=== PATIENT | male | born 1960 | race Caucasian/White ===

== ENCOUNTER → 2018-11-10 | Outpatient (CLI) | payer BC ==
[2018-11-10 11:37] LABS: Chol/HDL Ratio 3.04; LDL Cholesterol,Calculated 70.2 mg/dL (0.0-131.0); VLDL Calculation 23.8 mg/dL (5.00-40.00)
== END ==
LOC: LABWHC1 07:18
PROVIDERS: ATTEND Internal Medicine Interventional Cardiology
DX: E78.2 Mixed hyperlipidemia (principal)
CPT/HCPCS: 36415; 80061; 84450; 84460

== ENCOUNTER → 2020-10-01 | Outpatient (CLI) | payer BC ==
[2020-10-01 11:43] LABS: HGB 17.6 g/dL (13.0-17.0); MCH 31.8 pg (27.0-32.0); MCHC 33.2 g/dL (32.0-37.0); MCV 95.7 fL (80.0-97.0); Mean Platelet Volume 10.9 fL (9.5-12.2); Platelet Count 215 X 10*3/uL (140-440); RBC 5.54 X 10*6/uL (4.40-5.60); RDW 13.7 % (11.5-14.5); WBC 13.74 X 10*3/uL (4.50-10.00)
[2020-10-01 12:09] LABS: African American GFR (CKD) 94.4 (60.0-200.0); Albumin 4.5 g/dL (3.80-4.90); Albumin/Globulin Ratio 1.96 (1.60-3.17); Anion Gap 4.2 mmol/L (4.00-12.00); Calcium 9.5 mg/dL (8.7-10.3); Carbon Dioxide 29.8 mmol/L (21.6-31.8); Chol/HDL Ratio 3.07; Globulin 2.3 g/dL (1.6-3.3); LDL Cholesterol,Calculated 67.4 mg/dL (0.0-131.0); Non-African American GFR(CKD) 81.4 (60.0-200.0); Total Bilirubin 1.1 mg/dL (0.2-1.2); Total Protein 6.8 g/dL (6.2-8.2); VLDL Calculation 19.6 mg/dL (5.00-40.00)
== END | disposition home or self-care (01) ==
LOC: LABWHC1 08:31
PROVIDERS: ATTEND Nurse Practitioner Adult Health
DX: E78.5 Hyperlipidemia, unspecified (principal); I73.9 Peripheral vascular disease, unspecified; I10 Essential (primary) hypertension
CPT/HCPCS: 36415; 80053; 80061; 83735; 85027

== ENCOUNTER → 2021-02-02 | Outpatient (CLI) | payer BC ==
--- NOTE | 2021-02-06 08:09 | CTL ---
EXAMINATION TYPE: CT Low Dose Lung DATE OF EXAM ORDERED: 02/02/2021 HISTORY: Personal history of tobacco use. Lung cancer screening CT DLP: 142.[address] CTDI: 3.6 mGy Automated exposure control for dose reduction was used. SCREENING VISIT: Yes COMPARISON: None TECHNIQUE: Low dose computed tomography scan was performed through the chest at 1 mm thick sections a nd reconstructed images in multiple planes at 1 mm and [address] DIAGNOSTIC QUALITY: Satisfactory FINDINGS: LUNG NODULES: Present, detailed below: There is a 6 mm pulmonary nodule at the right upper lobe apex (4:48). LUNGS: COPD: Severity: Moderate. There is centrilobular and paraseptal emphysema, worse at the lung apices. There is a 7.2 cm paraseptal bulla at the left apex. Fibrosis: Severity: Mild Lymph nodes: No lymphadenopathy. Other findings: None RIGHT PLEURAL SPACE: Effusion: None Calcification: None Thickening: Moderate Pneumothorax: None LEFT PLEURAL SPACE: Effusion: None Calcification: Minimal calcification associated with the left apical pleural thickening. Thickening: Moderate Pneumothorax: None HEART: Heart Size: Normal Coronary calcification: Minimal Pericardial effusion: None OTHER FINDINGS: Upper abdomen: Normal adrenal glands. Bony thorax: No acute osseous abnormality. Supraclavicular region: Unremarkable. Other: None. IMPRESSION: 1. Emphysema with large left apical bulla. 2. Right upper lobe apical 6 mm solid pulmonary nodule. CT LUNG RAD AND CT CHEST RECOMMENDATION: Lung-Rad 3 Probably Benign: 6 month follow-up LDCT. S Modifier (other clinically significant findings): None
== END | disposition home or self-care (01) ==
LOC: RADCTMAIN 17:04
PROVIDERS: ATTEND Internal Medicine
DX: J43.9 Emphysema, unspecified (principal); R91.1 Solitary pulmonary nodule
CPT/HCPCS: 71271

== ENCOUNTER 2021-03-22 08:39 | Inpatient (IN) | payer BC ==
[2021-03-22] MEDS ORDERED: RX INFO: IV CONTRAST WAS GIVEN 1 EACH MISC MISCELLANE PRN (09:07)
[2021-03-22] MEDS ORDERED: SODIUM CHLORIDE 0.9% 500 ML 500 ML IV ONE (09:07)
[2021-03-22 09:30] LABS: Basophils # (A) 0.1 k/uL (0-0.2); Basophils % (A) 1 %; Eosinophils # (A) 0.3 k/uL (0-0.7); Eosinophils % (A) 2 %; HCT 52.5 % (39.0-53.0); HGB 17.7 gm/dL (13.0-17.5); Lymphocytes % (A) 23 %; MCH 33.2 pg (25.0-35.0); MCHC 33.8 g/dL (31.0-37.0); MCV 98.5 fL (80.0-100.0); Mean Platelet Volume 8.1; Monocytes # (A) 0.8 k/uL (0-1.0); Monocytes % (A) 6 %; Neutrophils # (A) 8.6 k/uL (1.3-7.7); Neutrophils % (A) 66 %; Platelet Count 212 k/uL (150-450); RBC 5.33 m/uL (4.30-5.90); RDW 13.3 % (11.5-15.5); WBC 12.9 k/uL (3.8-10.6)
[2021-03-22 09:39] LABS: Partial Thromboplastin Time 36.2 sec (22.0-30.0); Prothrombin Time 10.7 sec (9.0-12.0)
--- NOTE | 2021-03-22 09:48 | ED ---
Extremity Problem HPI - General Chief complaint: Extremity Problem,Nontraumatic Stated complaint: Leg Pain,Plavix Time Seen by Provider: 03/22/21 09:03 Source: patient, RN notes reviewed Mode of arrival: wheelchair Limitations: physical limitation - History of Present Illness Initial comments: 60-year-old male presents emergency Department with chief complaint of left calf pain. Patient is concerned as he is off Plavix for 9 days for colonoscopy. He has restart and his Plavix. Patient states he had a stent placed in his left leg by Dr. Lucas. Patient states that he is concerned that he might have a blood clot. Patient has no history of DVT . Patient is due for recheck of his stent. Patient has no chest pain or shortness breath. - Related Data Home Medications Medication Instructions Recorded Confirmed Aspirin EC [Ecotrin Low Dose] 81 mg PO HS 07/10/14 03/22/21 Atorvastatin [Lipitor] 80 mg PO HS 07/10/14 03/22/21 Clopidogrel [Plavix] 75 mg PO HS 02/20/17 03/22/21 Allergies Allergy/AdvReac Type Severity Reaction Status Date / Time No Known Allergies Allergy Verified 03/22/21 10:07 Review of Systems ROS Statement: Those systems with pertinent positive or pertinent negative responses have been documented in the HPI. ROS Other: All systems not noted in ROS Statement are negative. Past Medical History Past Medical History: CVA/TIA, Hyperlipidemia, Vascular Disorder Additional Past Medical History / Comment(s): Severe claudication L leg, CVA 2012, low back pain, MIGRAINE History of Any Multi-Drug Resistant Organisms: None Reported Past Surgical History: Back Surgery, Orthopedic Surgery Additional Past Surgical History / Comment(s): 10/06/15 L fem-pop atherectomy with PTBA and stent. Other surgical HX: LEFT thumb injury with tendon repair s, 09/30/15 peripheral angiogram, laminectomy lower back for ruptured disc, 07/2015 colonoscopy. Past Anesthesia/Blood Transfusion Reactions: No Reported Reaction Additional Past Anesthesia/Blood Transfusion Reaction / Comment(s): "HAD A SPINAL TEST-SEVERE VOMITING WITH NAUSEA AND VOMITING AND HEADACHE" Past Psychological History: No Psychological Hx Reported Past Alcohol Use History: Occasional Past Drug Use History: None Reported - Past Family History Mother Family Medical History: CVA/TIA Additional Family Medical History / Comment(s): Mother is 85 yrs old. Father Family Medical History: Coronary Artery Disease (CAD) Additional Family Medical History / Comment(s): Father has a cardiac stent. He is 89yrs old. General Exam Limitations: no limitations General appearance: alert, in no apparent distress Head exam: Present: atraumatic, normocephalic, normal inspection Eye exam: Present: normal appearance, PERRL, EOMI. Absent: scleral icterus, conjunctival injection, periorbital swelling Respiratory exam: Present: normal lung sounds bilaterally. Absent: respiratory distress, wheezes, rales, rhonchi, stridor Cardiovascular Exam: Present: regular rate, normal rhythm, normal heart sounds. Absent: systolic murmur, diastolic murmur, rubs, gallop, clicks Extremities exam: Present: other (Left calf tenderness, pain pulses palpable no discoloration or warmth) Course Vital Signs 03/22/21 03/22/21 08:51 11:22 Temperature 97.8 F Pulse Rate 77 69 Respiratory 16 16 Rate Blood Pressure 127/76 111/63 O2 Sat by Pulse 100 98 Oximetry Medical Decision Making - Medical Decision Making CT shows evidence of occluded stent in the left popliteal with reconstitution I did discuss the case with Dr. Lucas accepts admission once patient on heparin and will be admitted for further treatment - Lab Data Result diagrams: 03/22/21 09:16 03/22/21 09:16 Lab Results 03/22/21 03/22/21 03/22/21 Range/Units 09:16 09:16 09:16 WBC 12.9 H (3.8-10.6) k/uL RBC 5.33 (4.30-5.90) m/uL Hgb 17.7 H (13.0-17.5) gm/dL Hct 52.5 (39.0-53.0) % MCV 98.5 (80.0-100.0) fL MCH 33.2 (25.0-35.0) pg MCHC 33.8 (31.0-37.0) g/dL RDW 13.3 (11.5-15.5) % Plt Count 212 (150-450) k/uL MPV 8.1 Neutrophils % 66 % Lymphocytes % 23 % Monocytes % 6 % Eosinophils % 2 % Basophils % 1 % Neutrophils # 8.6 H (1.3-7.7) k/uL Lymphocytes # 3.0 (1.0-4.8) k/uL Monocytes # 0.8 (0-1.0) k/uL Eosinophils # 0.3 (0-0.7) k/uL Basophils # 0.1 (0-0.2) k/uL PT 10.7 (9.0-12.0) sec INR 1.0 (<1.2) APTT 36.2 H (22.0-30.0) sec Sodium 141 (137-145) mmol/L Potassium 4.6 (3.5-5.1) mmol/L Chloride 109 H (98-107) mmol/L Carbon Dioxide 25 (22-30) mmol/L Anion Gap 7 mmol/L BUN 22 H (9-20) mg/dL Creatinine 0.97 (0.66-1.25) mg/dL Est GFR (CKD-EPI)AfAm >90 (>60 ml/min/1.73 sqM) Est GFR (CKD-EPI)NonAf 85 (>60 ml/min/1.73 sqM) Glucose 97 (74-99) mg/dL Calcium 10.0 (8.4-10.2) mg/dL Total Bilirubin 1.4 H (0.2-1.3) mg/dL AST 37 (17-59) U/L ALT 55 H (4-49) U/L Alkaline Phosphatase 131 H (38-126) U/L Total Protein 7.3 (6.3-8.2) g/dL Albumin 4.4 (3.5-5.0) g/dL Disposition Clinical Impression: Left popliteal artery occlusion Disposition: ADMITTED IP TO THIS [facility] Condition: Fair Referrals: Neville Lucas MD [Primary Care Provider] - 1-2 days
[2021-03-22 09:53] LABS: ALT 55 U/L (4-49); AST 37 U/L (17-59); African American GFR (CKD) >90 (>60 ml/min/1.73 sqM); Albumin 4.4 g/dL (3.5-5.0); Alkaline Phosphatase 131 U/L (38-126); Anion Gap 7 mmol/L; Blood Urea Nitrogen 22 mg/dL (9-20); Carbon Dioxide 25 mmol/L (22-30); Chloride 109 mmol/L (98-107); Glucose 97 mg/dL (74-99); Non-African American GFR(CKD) 85 (>60 ml/min/1.73 sqM); Potassium 4.6 mmol/L (3.5-5.1); Sodium 141 mmol/L (137-145); Total Bilirubin 1.4 mg/dL (0.2-1.3); Total Protein 7.3 g/dL (6.3-8.2)
--- NOTE | 2021-03-22 10:10 | US ---
EXAMINATION TYPE: US venous doppler duplex LE LT DATE OF EXAM: 03/22/2021 9:50 AM COMPARISON: NONE CLINICAL HISTORY: pain. SIDE PERFORMED: Left TECHNIQUE: The lower extremity deep venous system is examined utilizing real time linear array sonog juan with graded compression, doppler sonography and color-flow sonography. VESSELS IMAGED: Common Femoral Vein Deep Femoral Vein Greater Saphenous Vein * Femoral Vein Popliteal Vein Small Saphenous Vein * Proximal Calf Veins (* superficial vessels) Left Leg: Negative for DVT IMPRESSION: 1. Left lower extremity ultrasound negative for deep venous thrombosis.
--- NOTE | 2021-03-22 11:30 | CT ---
CT angiogram of the left lower extremity HISTORY: Peripheral vascular occlusive disease, prior stent placement, left leg pain Helical acquisition obtained pre- and postadministration of 125 cc Isovue-370 IV through the pelvis a nd lower extremities. Automated exposure control for dose reduction, DLP 1849.4 mGycentimeters. 3-dim ensional reconstructions performed on an alternate workstation and reviewed. Correlation to prior angiogram 10/06/2015 The distal abdominal aorta, common iliac, internal and external iliac, common femoral, deep and super ficial femoral arteries are patent. Popliteal artery stent is in place, popliteal artery proximal to the stent is enhancing, at the level of the stent there is no enhancement identified. Distal to the s tent in the left popliteal artery there is enhancement of the anterior tibial artery, reconstitution of the distal aspect of the tibioperoneal trunk, posterior tibial artery and peroneal artery, peronea l artery is seen to the level of the mid left leg, anterior tibial artery and posterior tibial artery enhances and are patent into the foot. Outflow in the right lower extremity is patent to the poplite al artery, proximal trifurcation vasculature, at the level of the mid right leg. Peroneal artery does not enhance, the anterior tibial artery enhances to approximately the level of the mid leg, posterio r tibial artery enhances is patent into the foot. Mild atheromatous changes are present within the di stal abdominal aorta, iliac vasculature without significant stenosis. The inferior mesenteric artery is patent. Prostate is enlarged. Degenerative disc changes are present visualized lower lumbar spine. IMPRESSION: Peripheral vascular occlusive disease, there is occlusion of the left popliteal artery at the level of the stent with reconstitution, peripheral flow is described.
[2021-03-22] MEDS ORDERED: HEPARIN SODIUM 1,000 UN/ML (10ML VL) IV PRN (12:30)
[2021-03-22] MEDS ORDERED: HEPARIN SODIUM 1,000 UN/ML (10ML VL) IV ONE (12:30)
[2021-03-22] MEDS ORDERED: ACETAMINOPHEN TAB 325 MG TAB PO PRN (12:32)
[2021-03-22] MEDS ORDERED: NALOXONE 0.4 MG/ML 1 ML VIAL IV PRN (12:32)
[2021-03-22] MEDS: HEPARIN SOD,PORK IN 0.45% NACL 25,000 UNIT in 0.45% NACL 1 250ML.BAG IV SCH (13:18)
--- NOTE | 2021-03-22 13:53 | P.HPCAR ---
History of Present Illness H&P Date: 03/22/21 HISTORY OF PRESENT ILLNESS: This is a 60-year-old male with a past medical history significant for nicotine dependence and peripheral arterial disease with previous stenting of the left popliteal artery in 2016. Patient follows in the office with Dr. Lucas. Patient presented to the hospital with a chief complaint of left calf and foot pain. Patient states he underwent a colonoscopy last . He reports he was off his Plavix for 7 days. His is at the bedside and states the patient did not take his plavix for 9 days. He states he resumed his plavix on Saturday. He began having left calf pain a couple days ago and then the pain progressed into his foot. The patient denies any shortness of breath. He denies any chest pain or pressure. He was found to have left popliteal artery occlusion and was started on IV heparin in the emergency room. The patient states he is a current cigarette smoker and smokes approximately one pack per day. Patient underwent CT angiogram of the left lower extremity revealing peripheral vascular occlusive disease. There is occlusion of the left popliteal artery at the level of the stent with reconstitution. Doppler performed of left lower extremity which was negative for DVT Laboratory data: WBC 12.9. Hemoglobin 17.7. Platelet count 212. Sodium 141. Potassium 4.6. BUN 22. Creatinine 0.97. Current home cardiac medications include Plavix 75 mg, Lipitor 80 mg, and aspirin 81 mg Most recent echocardiogram obtained in 2019 revealed ejection fraction 55% and mild mitral regurgitation Patient underwent Serena scan stress test in 2016 which was negative for ischemia REVIEW OF SYSTEMS: At the time of my exam: CONSTITUTIONAL: Denies fever or chills. HEENT: Denies blurred vision, vision changes, or eye pain. Denies hemoptysis CARDIOVASCULAR: Denies chest pain. Denies orthopnea. Denies PND. Denies palpitations RESPIRATORY: Denies shortness of breath. GASTROINTESTINAL: Denies abdominal pain. Denies nausea or vomiting. HEMATOLOGIC: Denies bleeding disorders. GENITOURINARY: Denies any blood in urine. SKIN: Denies pruitis. Denies rash. PHYSICAL EXAM: VITAL SIGNS: Reviewed. GENERAL: Well-developed in no acute distress. HEENT: Head is normocephalic. Pupils are equal, round. Sclerae anicteric. Mucous membranes of the mouth are moist. Neck supple. No JVD or thyromegaly LUNGS: Respirations even and unlabored. Lungs essentially clear to auscultation bilaterally. HEART: Regular rate and rhythm. S1 and S2 heard. ABDOMEN: Soft. Nondistended. Nontender. EXTREMITIES: Normal range of motion. No clubbing or cyanosis. Patients left leg warm to touch. Doppler pulse present. NEUROLOGIC: Awake and alert. Oriented x 3. ASSESSMENT: Left leg pain Occlusion of the left popliteal artery Peripheral artery disease with stenting of left popliteal artery, 2015 Nicotine dependence PLAN: Smoking cessation encouraged Resume home medications including aspirin, plavix, and lipitor Continue IV heparin NPO at midnight Possible peripheral intervention to be performed tomorrow by Dr. Lucas Further recommendations pending patient course Nurse practitioner note has been reviewed by physician. Signing provider agrees with the documented findings, assessment, and plan of care. Physical Exam Vitals: Vital Signs Temp Pulse Resp BP Pulse Ox 03/22/21 11:22 69 16 111/63 98 03/22/21 08:51 97.8 F 77 16 127/76 100 Intake and Output 03/21/21 03/22/21 03/22/21 22:59 06:59 14:59 Other: Weight 97.522 kg Past Medical History Past Medical History: CVA/TIA, Hyperlipidemia, Vascular Disorder Additional Past Medical History / Comment(s): Severe claudication L leg, CVA 2012, low back pain, MIGRAINE History of Any Multi-Drug Resistant Organisms: None Reported Past Surgical History: Back Surgery, Orthopedic Surgery Additional Past Surgical History / Comment(s): 10/06/15 L fem-pop atherectomy with PTBA and stent. Other surgical HX: LEFT thumb injury with tendon repairs, 09/30/15 peripheral angiogram, laminectomy lower back for ruptured disc, 07/2015 colonoscopy. Past Anesthesia/Blood Transfusion Reactions: No Reported Reaction Additional Past Anesthesia/Blood Transfusion Reaction / Comment(s): "HAD A SPINAL TEST-SEVERE VOMITING WITH NAUSEA AND VOMITING AND HEADACHE" Past Psychological History: No Psychological Hx Reported Past Alcohol Use History: Occasional Past Drug Use History: None Reported - Past Family History Mother Family Medical History: CVA/TIA Additional Family Medical History / Comment(s): Mother is 85 yrs old. Father Family Medical History: Coronary Artery Disease (CAD) Additional Family Medical History / Comment(s): Father has a cardiac stent. He is 89yrs old. Physical Examination Vital Signs Temp Pulse Resp BP Pulse Ox 03/22/21 11:22 69 16 111/63 98 03/22/21 08:51 97.8 F 77 16 127/76 100 Intake and Output 03/21/21 03/22/21 03/22/21 22:59 06:59 14:59 Other: Weight 97.522 kg Results 03/22/21 09:16 03/22/21 09:16 Cardiac Enzymes 03/22/21 Range/Units 09:16 AST 37 (17-59) U/L Coagulation 03/22/21 Range/Units 09:16 PT 10.7 (9.0-12.0) sec APTT 36.2 H (22.0-30.0) sec CBC 03/22/21 Range/Units 09:16 WBC 12.9 H (3.8-10.6) k/uL RBC 5.33 (4.30-5.90) m/uL Hgb 17.7 H (13.0-17.5) gm/dL Hct 52.5 (39.0-53.0) % Plt Count 212 (150-450) k/uL Comprehensive Metabolic Panel 03/22/21 Range/Units 09:16 Sodium 141 (137-145) mmol/L Potassium 4.6 (3.5-5.1) mmol/L Chloride 109 H (98-107) mmol/L Carbon Dioxide 25 (22-30) mmol/L BUN 22 H (9-20) mg/dL Creatinine 0.97 (0.66-1.25) mg/dL Glucose 97 (74-99) mg/dL Calcium 10.0 (8.4-10.2) mg/dL AST 37 (17-59) U/L ALT 55 H (4-49) U/L Alkaline Phosphatase 131 H (38-126) U/L Total Protein 7.3 (6.3-8.2) g/dL Albumin 4.4 (3.5-5.0) g/dL Current Medications Generic Name Dose Route Start Last Admin Trade Name Freq PRN Reason Stop Dose Admin Acetaminophen 650 mg 03/22/21 12:32 Acetaminophen Tab 325 Mg Tab PO Q6HR PRN Mild Pain or Fever > 100.5 Hydrocodone Bitart/Acetaminophen 1 each 03/22/21 12:32 Hydrocodone/Apap 5-325mg 1 Each Tab PO Q4HR PRN Moderate Pain Aspirin 81 mg 03/22/21 21:00 Aspirin 81 Mg PO HS JJ Atorvastatin Calcium 80 mg 03/22/21 21:00 Atorvastatin 80 Mg Tab PO HS JJ Clopidogrel Bisulfate 75 mg 03/22/21 21:00 Clopidogrel 75 Mg Tab PO HS JJ Heparin Sodium (Porcine) 0 unit 03/22/21 12:30 Heparin Sodium 1,000 Un/Ml (10ml Vl) IV PER PROTOCOL PRN Low PTT Protocol Heparin Sodium/Sodium Chloride 250 mls @ 17.554 mls/hr 03/22/21 12:30 03/22/21 13:18 25,000 unit/ Sodium Chloride IV 18 units/kg/hr .[id number] JJ 17.554 mls/hr Administration Protocol 18 UNITS/KG/HR Sodium Chloride 1,000 mls @ 75 mls/hr 03/22/21 12:45 Saline 0.9% IV .[id number] [facility] Miscellaneous Information 1 each 03/22/21 09:07 Rx Info: Iv Contrast Was Given 1 Each Misc MISCELLANE 03/24/21 09:07 DAILY PRN Per Protocol Naloxone HCl 0.2 mg 03/22/21 12:32 Naloxone 0.4 Mg/Ml 1 Ml Vial IV Q2M PRN Opioid Reversal Intake and Output 03/21/21 03/22/21 03/22/21 22:59 06:59 14:59 Other: Weight 97.522 kg Patient Weight 03/23/21 06:59 Weight 97.522 kg 03/22/21 09:16 03/22/21 09:16
[2021-03-22] MEDS: SODIUM CHLORIDE 0.9% 1,000 ML IV SCH (17:57)
[2021-03-22 18:17] LABS: Prothrombin Time 11.1 sec (9.0-12.0)
[2021-03-22] MEDS: CLOPIDOGREL 75 MG TAB PO SCH (20:19)
[2021-03-22] MEDS: ASPIRIN 81 MG PO SCH (20:19)
[2021-03-22] MEDS: ATORVASTATIN 80 MG TAB PO SCH (20:19)
[2021-03-23 02:46] LABS: Basophils # (A) 0.1 k/uL (0-0.2); Basophils % (A) 1 %; Eosinophils # (A) 0.3 k/uL (0-0.7); Eosinophils % (A) 3 %; HCT 50.7 % (39.0-53.0); HGB 16.7 gm/dL (13.0-17.5); Lymphocytes # (A) 4.1 k/uL (1.0-4.8); Lymphocytes % (A) 37 %; MCH 32.8 pg (25.0-35.0); MCHC 32.9 g/dL (31.0-37.0); MCV 99.7 fL (80.0-100.0); Mean Platelet Volume 8.4; Monocytes # (A) 0.6 k/uL (0-1.0); Monocytes % (A) 6 %; Neutrophils # (A) 5.8 k/uL (1.3-7.7); Neutrophils % (A) 52 %; Platelet Count 166 k/uL (150-450); RBC 5.08 m/uL (4.30-5.90); RDW 13.2 % (11.5-15.5); WBC 11.2 k/uL (3.8-10.6)
[2021-03-23] MEDS: HEPARIN SOD,PORK IN 0.45% NACL 25,000 UNIT in 0.45% NACL 1 250ML.BAG IV SCH ×2 (05:45→19:45)
[2021-03-23] MEDS: SODIUM CHLORIDE 0.9% 1,000 ML IV SCH ×2 (05:47→16:13)
[2021-03-23] MEDS ORDERED: niCARdipine 25 MG/10 ML VIAL ONE (12:09)
[2021-03-23] MEDS ORDERED: LIDOCAINE 1% INJ 10MG/ML (20 ML MDV) ONE (12:09)
[2021-03-23] MEDS ORDERED: SODIUM CHLORIDE 0.9% 500 ML 500 ML with niCARdipine 6.25 MG, NITROGLYCERIN-D5W PMX 0.05... IV ONE ×4 (12:20)
[2021-03-23] MEDS ORDERED: HEPARIN SODIUM 1,000 UN/ML (10ML VL) ONE (12:26)
[2021-03-23] MEDS ORDERED: IV FLUID CONTINUATION 1,000 ML IV ONE (12:34)
[2021-03-23] MEDS ORDERED: MIDAZOLAM 2 MG/2 ML VIAL IVP ONE (12:34)
[2021-03-23] MEDS ORDERED: LIDOCAINE 1% INJ 10MG/ML (20 ML MDV) SQ ONE ×2 (12:34→12:35)
[2021-03-23] MEDS ORDERED: HEPARIN SODIUM 1,000 UN/ML (10ML VL) IV ONE (12:46)
[2021-03-23] MEDS ORDERED: ALTEPLASE 10 MG in SODIUM CHLORIDE 0.9% 100 ML IA STA (12:52)
[2021-03-23] MEDS ORDERED: HYDROmorphone 1 MG/ML 1 ML SYRINGE IVP ONE (12:56)
--- NOTE | 2021-03-23 13:04 | P.PN ---
Subjective Progress Note Date: 03/23/21 HISTORY OF PRESENT ILLNESS: This is a 60-year-old male with a past medical history significant for nicotine dependence and peripheral arterial disease with previous stenting of the left popliteal artery in 2016. Patient follows in the office with Dr. Lucas. Patient presented to the hospital with a chief complaint of left calf and foot pain. Patient states he underwent a colonoscopy last . He reports he was off his Plavix for 7 days. His is at the bedside and states the patient did not take his plavix for 9 days. He states he resumed his plavix on Saturday. He began having left calf pain a couple days ago and then the pain progressed into his foot. The patient denies any shortness of breath. He denies any chest pain or pressure. He was found to have left popliteal artery occlusion and was started on IV heparin in the emergency room. The patient states he is a current cigarette smoker and smokes approximately one pack per day. Patient underwent CT angiogram of the left lower extremity revealing peripheral vascular occlusive disease. There is occlusion of the left popliteal artery at the level of the stent with reconstitution. Doppler performed of left lower extremity which was negative for DVT Laboratory data: WBC 12.9. Hemoglobin 17.7. Platelet count 212. Sodium 141. Potassium 4.6. BUN 22. Creatinine 0.97. Current home cardiac medications include Plavix 75 mg, Lipitor 80 mg, and aspirin 81 mg Most recent echocardiogram obtained in 2018 revealed ejection fraction 55% and mild mitral regurgitation Patient underwent Serena scan stress test in 2016 which was negative for ischemia 03/23/2021 Patient examined this morning at the bedside. Patient denies chest pain or pressure. He denies shortness of breath. He reports minimal discomfort to his left foot. He remains on IV heparin. He is scheduled to undergo peripheral intervention today with Dr. Lucas. PHYSICAL EXAM: VITAL SIGNS: Reviewed. GENERAL: Well-developed in no acute distress. HEENT: Head is normocephalic. Pupils are equal, round. Sclerae anicteric. Mucous membranes of the mouth are moist. Neck supple. No JVD or thyromegaly LUNGS: Respirations even and unlabored. Lungs essentially clear to auscultation bilaterally. HEART: Regular rate and rhythm. S1 and S2 heard. ABDOMEN: Soft. Nondistended. Nontender. EXTREMITIES: Normal range of motion. No clubbing or cyanosis. Patients left leg warm to touch. Doppler pulse present. NEUROLOGIC: Awake and alert. Oriented x 3. ASSESSMENT: Left leg pain Occlusion of the left popliteal artery Peripheral artery disease with stenting of left popliteal artery, 2015 Nicotine dependence PLAN: Continue current cardiac medications Continue IV heparin Patient to undergo peripheral intervention today with Dr. Lucas Further recommendations pending patient course Nurse practitioner note has been reviewed by physician. Signing provider agrees with the documented findings, assessment, and plan of care. Objective - Vital Signs Vital signs: Vital Signs Temp 98.1 F 03/23/21 03:13 Pulse 51 L 03/23/21 03:13 Resp 18 03/23/21 03:13 BP 118/70 03/23/21 03:13 Pulse Ox 99 03/23/21 03:13 Intake & Output 03/22/21 03/23/21 03/23/21 18:59 06:59 18:59 Intake Total 442.814 46.422 Balance 442.814 46.422 Weight 97.522 kg Intake: Intake, IV Titration 442.814 46.422 Amount Heparin Sod,Pork in 0.45% 217.814 46.422 NaCl 25,000 unit In 0.45 % NaCl 1 250ml.bag @ 18 UNITS/KG/HR 17.554 mls/hr IV .[id number] JJ Rx#: [id number] Sodium Chloride 0.9% 1, 225 000 ml @ 75 mls/hr IV . [id number] JJ Rx#:[id number] Other: Voiding Method Toilet Urinal # Voids 1 - Labs CBC & Chem 7: 03/23/21 01:55 03/22/21 09:16 Labs: Abnormal Lab Results - Last 24 Hours (Table) 03/22/21 03/23/21 03/23/21 Range/Units 17:45 01:47 01:55 WBC 11.2 H (3.8-10.6) k/uL APTT >200.0 H* >200.0 H* (22.0-30.0) sec 03/23/21 Range/Units 07:54 WBC (3.8-10.6) k/uL APTT 101.2 H* (22.0-30.0) sec
[2021-03-23] MEDS ORDERED: RX INFO: IV CONTRAST WAS GIVEN 1 EACH MISC MISCELLANE PRN (13:10)
[2021-03-23] MEDS ORDERED: SODIUM CHLORIDE 0.9% 1,000 ML IV SCH (13:15)
[2021-03-23] MEDS ORDERED: IOPAMIDOL-250 100ML BTL INTRAARTER ONE (13:23)
[2021-03-23 13:59] LABS: Glucose,Whole Blood 79 mg/dL (75-99)
[2021-03-23 15:17] LABS: Prothrombin Time 10.9 sec (9.0-12.0)
[2021-03-23 15:30] LABS: Partial Thromboplastin Time >200.0 sec (22.0-30.0)
--- NOTE | 2021-03-23 15:33 | AN ---
ANGIOGRAPHY REPORT DATE OF SERVICE: March 23, 2021. PERFORMING PHYSICIAN: Neville Lucas MD. PROCEDURE PERFORMED: 1. Successful placement of infusion catheter for tPA in the left popliteal and left tibioperoneal trunk as well as left posterior tibial artery. 2. Left lower extremity angiogram. 3. Ultrasound-guided access of the right common femoral artery. INDICATION: This is a 60-year-old gentleman with history of lower extremities peripheral arterial disease who underwent stenting of the left popliteal in 2016, underwent recently a colonoscopy. He for some reason stopped the Plavix for 9 days. He presented to the hospital with pain in the left leg which was resting and mainly below the knee as well as in the foot. He underwent a CTA which showed occluded left popliteal. In view of the resting pain and the finding on the CT scan, we decided to pursue with an angiogram with possible placement of infusion catheter. APPROACH: Right common femoral artery. COMPLICATIONS: None. LEVEL OF SEDATION: Moderate, with sedation length of 31 minutes. PROCEDURE DESCRIPTION: After obtaining an informed consent, the patient was brought to the cardiac laborer. The right common femoral artery was cannulated using micropuncture technique under ultrasound guidance, the micropuncture wire passed easily. Then I placed a 6-[place] sheath, a 70 cm sheath at the right common femoral artery. I did select the left SFA using 0.035 stiff Glidewire with the backup support of 5- [place] RIM catheter. After that, I did advance the sheath over the catheter and the wire to the proximal left SFA. Anticoagulation was initiated using heparin and the patient was given 6000 of heparin IV. I did left lower extremity angiogram which revealed 1 vessel runoff below the knee with posterior tibial artery and occluded left tibioperoneal trunk as well as left popliteal, which seems to be in-stent occlusion. I did cross the acute total occlusion using 018 coleman tip Glidewire with the backup support of 035 catheter. After that I did advance the catheter over the wire to the left popliteal where I did left popliteal angiogram to prove that I was in the true lumen. After that I did advance the infusion catheter with a 20 cm infusion catheter over 018 wire to the left popliteal and then left TPT and then left posterior tibial artery. After that, I did secure the catheter and I connected the catheter to start infusion. The patient is going to be brought tomorrow for a second look to see if there is any residual thrombus. POSTPROCEDURE MANAGEMENT: 1. Continue TPA overnight. 2. Bring the patient for second look tomorrow morning. 3. Continue monitor the PT and PTT. 4. Continue to monitor the hemoglobin. 5. Standard groin care. 6. Follow up with the patient. SHARITA / PATO: [id number] /
[2021-03-23] MEDS: CLOPIDOGREL 75 MG TAB PO SCH (20:40)
[2021-03-23] MEDS: ASPIRIN 81 MG PO SCH (20:41)
[2021-03-23] MEDS: HYDROcodone/APAP 5-325MG 1 EACH TAB PO PRN (20:41)
[2021-03-23] MEDS: ATORVASTATIN 80 MG TAB PO SCH (20:42)
[2021-03-23 20:47] LABS: Basophils # (A) 0.1 k/uL (0-0.2); Basophils % (A) 1 %; Eosinophils # (A) 0.4 k/uL (0-0.7); Eosinophils % (A) 3 %; HCT 49.6 % (39.0-53.0); HGB 15.9 gm/dL (13.0-17.5); Lymphocytes # (A) 3.1 k/uL (1.0-4.8); Lymphocytes % (A) 27 %; MCH 31.6 pg (25.0-35.0); MCV 98.7 fL (80.0-100.0); Mean Platelet Volume 8.3; Monocytes # (A) 0.7 k/uL (0-1.0); Monocytes % (A) 6 %; Neutrophils % (A) 62 %; Platelet Count 177 k/uL (150-450); RBC 5.02 m/uL (4.30-5.90); RDW 12.6 % (11.5-15.5); WBC 11.3 k/uL (3.8-10.6)
[2021-03-23 20:57] LABS: African American GFR (CKD) >90 (>60 ml/min/1.73 sqM); Blood Urea Nitrogen 20 mg/dL (9-20); Non-African American GFR(CKD) 79 (>60 ml/min/1.73 sqM)
[2021-03-23] MEDS: ALTEPLASE 10 MG in SODIUM CHLORIDE 0.9% 100 ML IA SCH (21:00)
[2021-03-23 21:02] LABS: Partial Thromboplastin Time 35.3 sec (22.0-30.0); Prothrombin Time 11.1 sec (9.0-12.0)
[2021-03-24] MEDS: HYDROcodone/APAP 5-325MG 1 EACH TAB PO PRN ×3 (00:43→09:09)
[2021-03-24 05:27] LABS: Basophils # (A) 0.1 k/uL (0-0.2); Basophils % (A) 0 %; Eosinophils # (A) 0.3 k/uL (0-0.7); Eosinophils % (A) 3 %; HCT 51.3 % (39.0-53.0); HGB 16.3 gm/dL (13.0-17.5); Lymphocytes # (A) 2.6 k/uL (1.0-4.8); Lymphocytes % (A) 23 %; MCH 31.7 pg (25.0-35.0); MCHC 31.9 g/dL (31.0-37.0); MCV 99.7 fL (80.0-100.0); Mean Platelet Volume 8.6; Monocytes # (A) 0.8 k/uL (0-1.0); Monocytes % (A) 7 %; Neutrophils # (A) 7.6 k/uL (1.3-7.7); Neutrophils % (A) 67 %; Platelet Count 170 k/uL (150-450); RBC 5.15 m/uL (4.30-5.90); RDW 12.7 % (11.5-15.5); WBC 11.5 k/uL (3.8-10.6)
[2021-03-24 05:38] LABS: Partial Thromboplastin Time 36.7 sec (22.0-30.0); Prothrombin Time 11.1 sec (9.0-12.0)
[2021-03-24 05:50] LABS: African American GFR (CKD) >90 (>60 ml/min/1.73 sqM); Blood Urea Nitrogen 18 mg/dL (9-20); Non-African American GFR(CKD) >90 (>60 ml/min/1.73 sqM)
[2021-03-24] MEDS: ALTEPLASE 10 MG in SODIUM CHLORIDE 0.9% 100 ML IA SCH (06:16)
[2021-03-24] MEDS: SODIUM CHLORIDE 0.9% 1,000 ML IV SCH ×2 (06:33→18:23)
[2021-03-24] MEDS: HEPARIN SOD,PORK IN 0.45% NACL 25,000 UNIT in 0.45% NACL 1 250ML.BAG IV SCH (06:54)
[2021-03-24] MEDS ORDERED: HYDROmorphone 1 MG/ML 1 ML SYRINGE IVP ONE (13:02)
[2021-03-24] MEDS ORDERED: IV FLUID CONTINUATION 700 ML IV ONE (13:02)
[2021-03-24] MEDS ORDERED: MIDAZOLAM 2 MG/2 ML VIAL IV ONE (13:02)
[2021-03-24] MEDS ORDERED: NALOXONE 0.4 MG/ML 1 ML VIAL IVP PRN (13:07)
[2021-03-24] MEDS ORDERED: IOPAMIDOL-250 100ML BTL INTRAARTER ONE (13:07)
[2021-03-24] MEDS ORDERED: SODIUM CHLORIDE 0.9% 1,000 ML in EMPTY BAG 1 BAG IV SCH (13:15)
--- NOTE | 2021-03-24 13:43 | AN ---
ANGIOGRAPHY REPORT DATE OF SERVICE: PERFORMING PHYSICIAN: Neville Lucas M.D. PROCEDURES PERFORMED: 1. Left lower extremity angiogram. 2. Recheck after tPA infusion. 3. Right common femoral artery angiogram. INDICATION: This is a pleasant 60-year-old gentleman who was admitted to the hospital with right lower extremity discomfort and he was diagnosed with acute limb ischemia. He underwent an angiogram which revealed occluded right popliteal. Yesterday we did place an infusion catheter in the right popliteal and he was infused with tPA overnight and he was brought today for a second look. APPROACH: Right common femoral artery. COMPLICATIONS: None. LEVEL OF SEDATION: Moderate, with sedation length of 7 minutes. PROCEDURE DESCRIPTION: After obtaining informed consent, the patient was brought to the cardiac bobcat driver/labor. I did place an 0.035 stiff Glidewire in the infusion catheter and the infusion catheter was pulled out. Left lower extremity angiogram was performed and revealed 3-vessel runoff below the knee along with mild residual thrombus in the left popliteal and open left SFA. The patient did have palpable pulse about 2+ in the posterior tibial and anterior tibial arteries. At that point, I decided to stop. I did exchange my long 70 cm sheath for a short 11 cm sheath over 0.035 wire. Subsequently I closed the groin using Perclose. The procedure was completed without any complication. POST-PROCEDURE MANAGEMENT: 1. Consider triple therapy, including aspirin and Plavix and Xarelto at low doses. 2. The patient can be discharged in the next 24 hours. MMODL / IJN: [id number] /
--- NOTE | 2021-03-24 14:09 | P.PN ---
Subjective Progress Note Date: 03/24/21 HISTORY OF PRESENT ILLNESS: This is a 60-year-old male with a past medical history significant for nicotine dependence and peripheral arterial disease with previous stenting of the left popliteal artery in 2016. Patient follows in the office with Dr. Lucas. Patient presented to the hospital with a chief complaint of left calf and foot pain. Patient states he underwent a colonoscopy last . He reports he was off his Plavix for 7 days. His is at the bedside and states the patient did not take his plavix for 9 days. He states he resumed his plavix on Saturday. He began having left calf pain a couple days ago and then the pain progressed into his foot. The patient denies any shortness of breath. He denies any chest pain or pressure. He was found to have left popliteal artery occlusion and was started on IV heparin in the emergency room. The patient states he is a current cigarette smoker and smokes approximately one pack per day. Patient underwent CT angiogram of the left lower extremity revealing peripheral vascular occlusive disease. There is occlusion of the left popliteal artery at the level of the stent with reconstitution. Doppler performed of left lower extremity which was negative for DVT Laboratory data: WBC 12.9. Hemoglobin 17.7. Platelet count 212. Sodium 141. Potassium 4.6. BUN 22. Creatinine 0.97. Current home cardiac medications include Plavix 75 mg, Lipitor 80 mg, and aspirin 81 mg Most recent echocardiogram obtained in 2019 revealed ejection fraction 55% and mild mitral regurgitation Patient underwent Serena scan stress test in 2016 which was negative for ischemia 03/23/2021 Patient examined this morning at the bedside. Patient denies chest pain or pressure. He denies shortness of breath. He reports minimal discomfort to his left foot. He remains on IV heparin. He is scheduled to undergo peripheral intervention today with Dr. Lucas. 03/24/2021 The patient was examined this morning in the intensive care unit by Dr. Carroll. Patient underwent angiogram yesterday with placement of infusion catheter for TPA in the left popliteal and left tibioperoneal trunk as well as the left posterior tibial artery. The patient underwent repeat angiogram today with Dr. Lucas revealing mild residual thrombous in the left popliteal and open left SFA. The patient has a palpable pulse in the left lower extremity. He was started on Xarelto. PHYSICAL EXAM: VITAL SIGNS: Reviewed. GENERAL: Well-developed in no acute distress. HEENT: Head is normocephalic. Pupils are equal, round. Sclerae anicteric. Mucous membranes of the mouth are moist. Neck supple. No JVD or thyromegaly LUNGS: Respirations even and unlabored. Lungs essentially clear to auscultation bilaterally. HEART: Regular rate and rhythm. S1 and S2 heard. ABDOMEN: Soft. Nondistended. Nontender. EXTREMITIES: Normal range of motion. No clubbing or cyanosis. Patients left leg warm to touch. pulse present. NEUROLOGIC: Awake and alert. Oriented x 3. ASSESSMENT: Left leg pain Occlusion of the left popliteal artery Peripheral artery disease with stenting of left popliteal artery, 2016 Nicotine dependence PLAN: Continue current cardiac medications Continue triple therapy including aspirin, Plavix, and Xarelto Continue to monitor patient for an additional 24 hours Anticipate discharge home tomorrow if patient remains stable Nurse practitioner note has been reviewed by physician. Signing provider agrees with the documented findings, assessment, and plan of care. Objective - Vital Signs Vital signs: Vital Signs Temp 98.4 F 03/24/21 12:00 Pulse 65 03/24/21 12:00 Resp 20 03/24/21 12:00 BP 136/80 03/24/21 12:00 Pulse Ox 97 03/24/21 12:00 Intake & Output 03/23/21 03/24/21 03/24/21 18:59 06:59 18:59 Intake Total 8838.912 5433.667 728 Output Total 1300 800 Balance 1136.422 75.667 -72 Weight 100.7 kg Intake: IV 350 1043 728 Alteplase 10 mg In Sodium 110 60 Chloride 0.9% 100 ml @ 1 MG/HR 10 mls/hr IA .Q10H JJ Rx#:[id number] Pressure Bag 33 18 Sodium Chloride 0.9% 1, 300 900 450 000 ml @ 75 mls/hr IV . [id number] JJ Rx#:[id number] Intake, IV Titration 46.422 92.667 Amount Alteplase 10 mg In Sodium 92.667 Chloride 0.9% 100 ml @ 1 MG/HR 10 mls/hr IA .Q10H JJ Rx#:[id number] Heparin Sod,Pork in 0.45% 46.422 0 NaCl 25,000 unit In 0.45 % NaCl 1 250ml.bag @ 18 UNITS/KG/HR 17.554 mls/hr IV .[id number] [facility] Rx#: [id number] Oral 740 240 Output: Urine 1300 800 Other: Voiding Method Urinal Urinal Urinal ABP, PAP, CO, CI - Last Documented Arterial Blood Pressure 134/61 - Labs CBC & Chem 7: 03/24/21 04:16 03/24/21 04:16 Labs: Abnormal Lab Results - Last 24 Hours (Table) 03/23/21 03/23/21 03/23/21 Range/Units 14:40 17:51 20:31 WBC 11.3 H (3.8-10.6) k/uL APTT >200.0 H* 34.4 H (22.0-30.0) sec 03/23/21 03/24/21 03/24/21 Range/Units 20:31 04:16 04:16 WBC 11.5 H (3.8-10.6) k/uL APTT 35.3 H 36.7 H (22.0-30.0) sec
--- NOTE | 2021-03-24 14:10 | IR ---
Fluoroscopy HISTORY: Peripheral vascular occlusive disease 120 seconds fluoroscopy time supplied to the referring clinician. 133 intraoperative C-arm images do cument the procedure. See dictated report from cardiology.
[2021-03-24] MEDS: ASPIRIN 81 MG PO SCH (20:15)
[2021-03-24] MEDS: CLOPIDOGREL 75 MG TAB PO SCH (20:15)
[2021-03-24] MEDS: ATORVASTATIN 80 MG TAB PO SCH (20:15)
[2021-03-25 02:35] VITALS: PULSE 57; RESP 18
--- NOTE | 2021-03-25 08:56 | P.CONS ---
History of Present Illness - Reason for Consult Consult date: 03/23/21 Medical management Requesting physician: Neville Lucas - Chief Complaint Left leg pain - History of Present Illness HISTORY OF PRESENT ILLNESS: This is a 60-year-old male with a previous medical history significant for peripheral arterial disease status post left popliteal artery stent in 2016, hyperlipidemia, chronic tobacco use and dependence, CVA, enlarged prostate, patient presented to the emergency department at [facility] with increased pain in the left lower extremity that was started 2 days ago, patient recently underwent colonoscopy on 03/16/2021 and he had stopped his Plavix for 7 days prior to the colonoscopy he was supposed to go back and his Plavix immediately after the colonoscopy however the patient did not start for 3 more days after that he has been off the Plavix for 9 days total then he developed to have a significant pain in the left lower extremity he was seen in the ER underwent CT angiography of the left lower extremity that was positive for occluded left popliteal artery at the site of the stent, patient was admitted to the intensive care unit, he was placed on thrombolytics along with heparin drip, he was placed back on his aspirin Plavix Lipitor, and he is going tomorrow for possible stenting of the left popliteal artery again if needed, I was asked to see the patient for medical management. REVIEW OF SYSTEMS: Constitutional: No documented fever, no chills, no night sweats. No weight change. No weakness, fatigue or lethargy. No daytime sleepiness. HEENT: No headache. No blurred vision or double vision, no loss of vision. No loss of Hearing, no ringing in the ears, no dizziness. No nasal drainage or congestion. No epistaxis. No sore throat. Lungs: No shortness of breath, no cough, no sputum production. No wheezing. Reports dyspnea with activity. Cardiovascular: No chest pain, no lower extremity edema. No palpitations. No paroxysmal nocturnal dyspnea. No orthopnea. No lightheadedness or dizziness. No syncopal episodes. Abdominal: Reports abdominal pain. No nausea, vomiting. No diarrhea. No constipation. No bloody or tarry stools reports loss of appetite. Genitourinary: No dysuria, increased frequency, urgency. No urinary retention. Musculoskeletal: No myalgias. No muscle weakness, no gait dysfunction, no frequent falls. No back pain. No neck pain. Integumentary: No wounds, no lesions. No rash or pruritus. No unusual bruising. No change in hair or nails. Neurologic: No aphasia. No facial droop. No change in mentation. No head injury. No headache. No paralysis. No paresthesia. Psychiatric: No depression. No anxiety. No mood swings. Endocrine: No abnormal blood sugars. No weight change. PAST MEDICAL HISTORY: Peripheral arterial disease. Mixed hyperlipidemia. CVA Enlarged prostate. Colon polyps. PAST SURGICAL HISTORY: Laminectomy L5-S1. Left popliteal artery stent placement 2016 Left thumb surgery. Colonoscopy 03/16/2021 SOCIAL HISTORY: Patient smokes about a pack and a half every day*smoking in 03/18/1969 , he drinks 2-3 times a week, he denies any drug use or abuse. FAMILY HISTORY: Father at age 92 from lung cancer, mother is 89-year-old with dementia at [facility], shouldn't had 3 brothers one with a brain aneurysm at 55-year-old one from alcohol abuse, at the age of 46 and 1 brother still alive. PHYSICAL EXAMINATION: General: 60-year-old male laying down in bed in no apparent distress HEENT: Head is atraumatic, normocephalic, pupils were equal round reactive to light and recommendation, extraocular muscle movement were intact, sclera nonicteric, conjunctivae were pale, mucous membranes of the mouth are somewhat dry. Neck: Supple, no JVP, normal carotid upstroke bilaterally, no lymphadenopathy. Chest: Decreased breath sounds at the bases, few rhonchi, no expiratory wheezes, no chest wall tenderness, no intercostal retractions. Heart: First heart sound is normal, second heart sounds normal there is no gallop or murmur. Abdomen: Soft, nontender, nondistended, positive bowel sounds. Extremities: There is no edema no calf tenderness, dorsalis pedis +1 bilaterally. Neurologic examination: Patient is awake alert and oriented X 3 , cranial nerves II-12 appear grossly intact, muscle power were 5 out of 5 in upper extremities and 5 out of 5 in bilateral lower extremities, deep tendon reflexes normal bilaterally. ASSESSMENT AND PLAN: 1. Occlusion of the left popliteal artery with ischemic limb. Status post in situ thrombolytics, continue heparin drip, continue aspirin, continue Plavix 75 minute gram once every day, continue atorvastatin 80 mg orally once every day, continue current plan as per cardiology , he may need to go back for possible intervention of the left popliteal artery and stent placement tomorrow morning. 2. History of PAD status post stenting of the left popliteal artery. Continue treatment as as in paragraph #1. 3. Mixed hyperlipidemia. Continue patient on Lipitor 80 mg orally once every day. 4. History of CVA. Continue aspirin Plavix and Lipitor for secondary stroke prevention. 5. History of colon polyps status post colonoscopy last one was done 03/16/2021. 6. Enlarged prostate. Monitor for urinary retention. 7. Thank you for the consult we will follow with you. Past Medical History Past Medical History: CVA/TIA, Hyperlipidemia, Vascular Disorder Additional Past Medical History / Comment(s): PAD, severe claudication L leg, CVA 2012 no residual, past migraines, past low vack ruptured disc with surgery, benign colon polyp. History of Any Multi-Drug Resistant Organisms: None Reported Past Surgical History: Back Surgery, Orthopedic Surgery Additional Past Surgical History / Comment(s): 10/06/15 L fem-pop atherectomy with PTBA and stent, left thumb injury with tendon repairs, 09/30/15 peripheral angiogram, laminectomy lower back for ruptured disc, colonoscopies. Past Anesthesia/Blood Transfusion Reactions: No Reported Reaction Additional Past Anesthesia/Blood Transfusion Reaction / Comm: "HAD A SPINAL TEST-SEVERE VOMITING WITH NAUSEA AND VOMITING AND HEADACHE" Smoking Status: Current every day smoker - Past Family History Mother Family Medical History: CVA/TIA Additional Family Medical History / Comment(s): Mother is 89 yrs old. Father Family Medical History: Coronary Artery Disease (CAD) Additional Family Medical History / Comment(s): Father of lung cancer Medications and Allergies Home Medications Medication Instructions Recorded Confirmed Type Aspirin EC [Ecotrin Low Dose] 81 mg PO HS 07/10/14 03/22/21 History Atorvastatin [Lipitor] 80 mg PO HS 07/10/14 03/22/21 History Clopidogrel [Plavix] 75 mg PO HS 02/20/17 03/22/21 History Rivaroxaban [Xarelto] 2.5 mg PO BID #180 tab 03/24/21 Rx Allergies Allergy/AdvReac Type Severity Reaction Status Date / Time No Known Allergies Allergy Verified 03/22/21 10:07 Physical Exam Vitals: Vital Signs Temp Pulse Resp BP Pulse Ox 03/23/21 03:13 98.1 F 51 L 18 118/70 99 03/23/21 01:21 63 18 03/23/21 00:00 97.9 F 63 18 117/68 98 03/22/21 20:00 98.0 F 69 18 111/64 95 Intake and Output 03/23/21 03/23/21 03/23/21 06:59 14:59 22:59 Intake Total 116.293 96.422 Balance 116.293 96.422 Intake: IV 50 Intake, IV Titration 116.293 46.422 Amount Heparin Sod,Pork in 0.45% 116.293 46.422 NaCl 25,000 unit In 0.45 % NaCl 1 250ml.bag @ 18 UNITS/KG/HR 17.554 mls/hr IV .[id number] [facility] Rx#: [id number] Other: Voiding Method Toilet Urinal # Voids 1 Results CBC & Chem 7: 03/24/21 04:16 03/24/21 04:16 Labs: Abnormal Lab Results - Last 24 Hours (Table) 03/22/21 03/23/21 03/23/21 Range/Units 17:45 01:47 01:55 WBC 11.2 H (3.8-10.6) k/uL APTT >200.0 H* >200.0 H* (22.0-30.0) sec 03/23/21 03/23/21 Range/Units 07:54 14:40 WBC (3.8-10.6) k/uL APTT 101.2 H* >200.0 H* (22.0-30.0) sec
[2021-03-25] MEDS ORDERED: RIVAROXABAN 2.5 MG TABLET PO SCH (09:00)
--- NOTE | 2021-03-25 11:10 | P.PN ---
Subjective Progress Note Date: 03/25/21 HISTORY OF PRESENT ILLNESS: This is a 60-year-old male with a previous medical history significant for peripheral arterial disease status post left popliteal artery stent in 2016, hyperlipidemia, chronic tobacco use and dependence, CVA, enlarged prostate, patient presented to the emergency department at [facility] with increased pain in the left lower extremity that was started 2 days ago, patient recently underwent colonoscopy on 03/16/2021 and he had stopped his Plavix for 7 days prior to the colonoscopy he was supposed to go back and his Plavix immediately after the colonoscopy however the patient did not start for 3 more days after that he has been off the Plavix for 9 days total then he developed to have a significant pain in the left lower extremity he was seen in the ER underwent CT angiography of the left lower extremity that was positive for occluded left popliteal artery at the site of the stent, patient was admitted to the intensive care unit, he was placed on thrombolytics along with heparin drip, he was placed back on his aspirin Plavix Lipitor, and he is going tomorrow for possible stenting of the left popliteal artery again if needed, I was asked to see the patient for medical management. 03/24: Patient was seen in intensive care unit, he is currently on aspirin Plavix as well as local thrombolytics, he is going to the label stitcher for evaluation of the left popliteal artery, discussed with Dr. Lucas the result of the angiogram that showed almost complete resolution of the clot and recommended for the patient to continue the aspirin and Plavix and adding Xarelto 2.5 mg orally twice every day he will be transferred to a telemetry unit, likely will be discharged home in the next 24 hours. 03/25:Patient is feeling better today, he is ablating very well, he has no chest pain or shortness breath, he has no coughing, he has no abdominal pain, no nause a or vomiting or diarrhea he seems to be tolerating treatment very well, he is currently on a triple anticoagulation aspirin Plavix and Xarelto 2.5 mg orally twice every day, he shouldn't will be discharged home today in follow-up with me as an outpatient 1 week. REVIEW OF SYSTEMS: Constitutional: No documented fever, no chills, no night sweats. No weight change. No weakness, fatigue or lethargy. No daytime sleepiness. HEENT: No headache. No blurred vision or double vision, no loss of vision. No loss of Hearing, no ringing in the ears, no dizziness. No nasal drainage or congestion. No epistaxis. No sore throat. Lungs: No shortness of breath, no cough, no sputum production. No wheezing. Reports dyspnea with activity. Cardiovascular: No chest pain, no lower extremity edema. No palpitations. No paroxysmal nocturnal dyspnea. No orthopnea. No lightheadedness or dizziness. No syncopal episodes. Abdominal: Reports abdominal pain. No nausea, vomiting. No diarrhea. No constipation. No bloody or tarry stools reports loss of appetite. Genitourinary: No dysuria, increased frequency, urgency. No urinary retention. Musculoskeletal: No myalgias. No muscle weakness, no gait dysfunction, no frequent falls. No back pain. No neck pain. Integumentary: No wounds, no lesions. No rash or pruritus. No unusual bruising. No change in hair or nails. Neurologic: No aphasia. No facial droop. No change in mentation. No head injury. No headache. No paralysis. No paresthesia. Psychiatric: No depression. No anxiety. No mood swings. Endocrine: No abnormal blood sugars. No weight change. PHYSICAL EXAMINATION: General: 60-year-old male laying down in bed in no apparent distress HEENT: Head is atraumatic, normocephalic, pupils were equal round reactive to light and recommendation, extraocular muscle movement were intact, sclera nonicteric, conjunctivae were pale, mucous membranes of the mouth are somewhat dry. Neck: Supple, no JVP, normal carotid upstroke bilaterally, no lymphadenopathy. Chest: Decreased breath sounds at the bases, few rhonchi, no expiratory wheezes, no chest wall tenderness, no intercostal retractions. Heart: First heart sound is normal, second heart sounds normal there is no gallop or murmur. Abdomen: Soft, nontender, nondistended, positive bowel sounds. Extremities: There is no edema no calf tenderness, dorsalis pedis +1 roseann aterally. Neurologic examination: Patient is awake alert and oriented X 3 , cranial nerves II-12 appear grossly intact, muscle power were 5 out of 5 in upper extremities and 5 out of 5 in bilateral lower extremities, deep tendon reflexes normal bilaterally. ASSESSMENT AND PLAN: 1. Occlusion of the left popliteal artery with ischemic limb. Status post in situ thrombolytics, repeated echogram did show almost complete resolution of the clot of the left popliteal artery, continue patient on aspirin 81 mg once every day, Plavix 75 mg once every day, added Xarelto 2.5 mg orally twice every day, smoking cessation and counseling an increase activity, patient is medically stable for discharge home. 2. History of PAD status post stenting of the left popliteal artery. Continue treatment as as in paragraph #1. 3. Mixed hyperlipidemia. Continue patient on Lipitor 80 mg orally once every d ay. 4. History of CVA. Continue aspirin Plavix and Lipitor for secondary stroke prevention. 5. History of colon polyps status post colonoscopy last one was done 03/16/2021. 6. Enlarged prostate. Monitor for urinary retention. 7. Patient is medically stable for discharge home. Objective - Vital Signs Vital signs: Vital Signs Temp 97.9 F 03/25/21 00:53 Pulse 57 L 03/25/21 00:53 Resp 18 03/25/21 00:53 BP 120/65 03/25/21 00:53 Pulse Ox 97 03/25/21 00:53 Intake & Output 03/24/21 03/25/21 03/25/21 18:59 06:59 18:59 Intake Total 1178 225 Output Total 1300 350 Balance -122 -125 Intake: IV 1178 225 Alteplase 10 mg In Sodium 60 Chloride 0.9% 100 ml @ 1 MG/HR 10 mls/hr IA .Q10H [facility] Rx#:[id number] Pressure Bag 18 Sodium Chloride 0.9% 1, 900 225 000 ml @ 75 mls/hr IV . [id number] [facility] Rx#:[id number] Output: Urine 1300 350 Other: Voiding Method Urinal Urinal # Voids 1 ABP, PAP, CO, CI - Last Documented Arterial Blood Pressure 134/61 - Labs CBC & Chem 7: 03/24/21 04:16 03/24/21 04:16
[2021-03-25 11:51] LABS: Basophils % (A) 0 %; Eosinophils # (A) 0.3 k/uL (0-0.7); Eosinophils % (A) 3 %; HCT 50.3 % (39.0-53.0); HGB 16.5 gm/dL (13.0-17.5); Lymphocytes # (A) 2.6 k/uL (1.0-4.8); Lymphocytes % (A) 23 %; MCH 32.5 pg (25.0-35.0); MCHC 32.7 g/dL (31.0-37.0); MCV 99.1 fL (80.0-100.0); Mean Platelet Volume 8.4; Monocytes # (A) 0.7 k/uL (0-1.0); Monocytes % (A) 6 %; Neutrophils # (A) 7.5 k/uL (1.3-7.7); Neutrophils % (A) 66 %; Platelet Count 171 k/uL (150-450); RBC 5.07 m/uL (4.30-5.90); RDW 13.2 % (11.5-15.5); WBC 11.4 k/uL (3.8-10.6)
[2021-03-25 12:01] LABS: African American GFR (CKD) >90 (>60 ml/min/1.73 sqM); Anion Gap 8 mmol/L; Blood Urea Nitrogen 13 mg/dL (9-20); Calcium 9.1 mg/dL (8.4-10.2); Carbon Dioxide 23 mmol/L (22-30); Chloride 110 mmol/L (98-107); Glucose 75 mg/dL (74-99); Non-African American GFR(CKD) 82 (>60 ml/min/1.73 sqM); Potassium 3.9 mmol/L (3.5-5.1); Sodium 141 mmol/L (137-145)
[2021-03-25 12:36] VITALS: BP 107/59; TEMP 98.2
--- NOTE | 2021-03-25 13:33 | P.DS ---
Providers Date of admission: 03/22/21 12:30 Attending physician: Neville Lucas Consults: 03/23/21 14:08 Consult Physician Routine Consulting Provider: Melinda Dumont Consult Reason/Comments: medical management Do you want consulting provider notified?: Yes Primary care physician: Neville Lucas [facility] Course: Patient is a pleasant 60-year-old male with a history of right popliteal stenting who recently held his antiplatelet medications and then developed acute limb ischemia of the left lower extremity. He therefore initially underwent angiogram which showed occluded popliteal segment and then underwent lytic TPA catheter placement. After TPA catheter had been placed for 24 hours he was brought back for additional angiogram which showed 3 vessel runoff with mild residual thrombus in the left popliteal area which was not full limiting and left alone. Patient's pulse is improved and patient no longer had any lower extremity pain with palpable dorsalis pedis and posterior tibial pulses. His right femoral site appears stable without any hematoma. Patient appears stable for discharge home 03/25/2021 on 2 or antiplatelets with aspirin and Plavix as well as Xarelto 2.5 mg twice a day dosing. Patient Condition at Discharge: Fair Plan - Discharge Summary Discharge Rx Participant: No New Discharge Prescriptions: New Rivaroxaban [Xarelto] 2.5 mg PO BID #180 tab Continue Aspirin EC [Ecotrin Low Dose] 81 mg PO HS Atorvastatin [Lipitor] 80 mg PO HS Clopidogrel [Plavix] 75 mg PO HS Discharge Medication List Aspirin EC [Ecotrin Low Dose] 81 mg PO HS 07/10/14 [History] Atorvastatin [Lipitor] 80 mg PO HS 07/10/14 [History] Clopidogrel [Plavix] 75 mg PO HS 02/20/17 [History] Rivaroxaban [Xarelto] 2.5 mg PO BID #180 tab 03/24/21 [Rx] Follow up Appointment(s)/Referral(s): Neville Lucas MD [Primary Care Provider] - 1-2 days
--- NOTE | 2021-03-29 07:27 | P.PN ---
Subjective Progress Note Date: 03/24/21 HISTORY OF PRESENT ILLNESS: This is a 60-year-old male with a previous medical history significant for peripheral arterial disease status post left popliteal artery stent in 2016, hyperlipidemia, chronic tobacco use and dependence, CVA, enlarged prostate, patient presented to the emergency department at [facility] with increased pain in the left lower extremity that was started 2 days ago, patient recently underwent colonoscopy on 03/16/2021 and he had stopped his Plavix for 7 days prior to the colonoscopy he was supposed to go back and his Plavix immediately after the colonoscopy however the patient did not start for 3 more days after that he has been off the Plavix for 9 days total then he developed to have a significant pain in the left lower extremity he was seen in the ER underwent CT angiography of the left lower extremity that was positive for occluded left popliteal artery at the site of the stent, patient was admitted to the intensive care unit, he was placed on thrombolytics along with heparin drip, he was placed back on his aspirin Plavix Lipitor, and he is going tomorrow for possible stenting of the left popliteal artery again if needed, I was asked to see the patient for medical management. 03/24: Patient remains in the intensive care unit status post placement of infusion catheter for TPA in the left popliteal and left tibial peroneal trunk as well as left posterior tibial artery stent, left lower extremity angiogram. Patient states he has less tenderness to the left posterior calf area left pulse is improved. He is complaining of back pain probably from laying on the mattress and also states he did not sleep very much last night. No chest pain or shortness of breath. Has not had a bowel movement yet. Plan is for patient to return to the [facility] today for further evaluation which is scheduled around noon today. Patient has been afebrile, heart rate in the 50s, blood pressure 156/85, pulse ox 96% on room air. Repeat blood work reveals WBC 11.5, hemoglobin 16.3. INR is 1. BUN 18 and creatinine 0.91. REVIEW OF SYSTEMS: Constitutional: No documented fever, no chills, no night sweats. No weight change. No weakness, fatigue or lethargy. No daytime sleepiness. HEENT: No headache. No blurred vision or double vision, no loss of vision. No loss of Hearing, no ringing in the ears, no dizziness. No nasal drainage or congestion. No epistaxis. No sore throat. Lungs: No shortness of breath, no cough, no sputum production. No wheezing. Reports dyspnea with activity. Cardiovascular: No chest pain, no lower extremity edema. No palpitations. No paroxysmal nocturnal dyspnea. No orthopnea. No lightheadedness or dizziness. No syncopal episodes. Abdominal: Reports abdominal pain. No nausea, vomiting. No diarrhea. No constipation. No bloody or tarry stools reports loss of appetite. Genitourinary: No dysuria, increased frequency, urgency. No urinary retention. Musculoskeletal: No myalgias. No muscle weakness, no gait dysfunction, no frequent falls. No back pain. No neck pain. Integumentary: No wounds, no lesions. No rash or pruritus. No unusual bruising. No change in hair or nails. Neurologic: No aphasia. No facial droop. No change in mentation. No head injury. No headache. No paralysis. No paresthesia. Psychiatric: No depression. No anxiety. No mood swings. Endocrine: No abnormal blood sugars. No weight change. PHYSICAL EXAMINATION: General: 60-year-old male laying down in bed in no apparent distress HEENT: Head is atraumatic, normocephalic, pupils were equal round reactive to light and recommendation, extraocular muscle movement were intact, sclera nonicteric, conjunctivae were pale, mucous membranes of the mouth are somewhat dry. Neck: Supple, no JVP, normal carotid upstroke bilaterally, no lymphadenopathy. Chest: Decreased breath sounds at the bases, few rhonchi, no expiratory wheezes, no chest wall tenderness, no intercostal retractions. Heart: First heart sound is normal, second heart sounds normal there is no gallop or murmur. Abdomen: Soft, nontender, nondistended, positive bowel sounds. Extremities: There is no edema no calf tenderness, dorsalis pedis +1 bilaterally. Neurologic examination: Patient is awake alert and oriented X 3 , cranial nerves II-12 appear grossly intact, muscle power were 5 out of 5 in upper extremities and 5 out of 5 in bilateral lower extremities, deep tendon reflexes normal bilaterally. ASSESSMENT AND PLAN: 1. Occlusion of the left popliteal artery with ischemic limb. Status post in situ thrombolytics, continue patient on aspirin 81 mg once every day, Plavix 75 mg once every day, added Xarelto 2.5 mg orally twice every day, smoking cessation and counseling an increase activity. 2. History of PAD status post stenting of the left popliteal artery. Continue treatment as as in paragraph #1. 3. Mixed hyperlipidemia. Continue patient on Lipitor 80 mg orally once every day. 4. History of CVA. Continue aspirin Plavix and Lipitor for secondary stroke prevention. 5. History of colon polyps status post colonoscopy last one was done 03/16/2021. 6. Enlarged prostate. Monitor for urinary retention. CODE STATUS: Full code Discharge plan: Home Impression and plan of care have been directed as dictated by the signing physician. Mana Benavides nurse practitioner acting as scribe for signing physic shahida. Objective - Vital Signs Vital signs: Vital Signs Temp 98 F 03/24/21 04:00 Pulse 51 L 03/24/21 07:30 Resp 10 L 03/24/21 07:30 BP 142/80 03/24/21 07:30 Pulse Ox 97 03/24/21 07:30 Intake & Output 03/23/21 03/24/21 03/24/21 18:59 06:59 18:59 Intake Total 3598.203 9307.667 88 Output Total 1300 0 Balance 1136.422 75.667 88 Intake: IV 350 1043 88 Alteplase 10 mg In Sodium 110 10 Chloride 0.9% 100 ml @ 1 MG/HR 10 mls/hr IA .Q10H JJ Rx#:[id number] Pressure Bag 33 3 Sodium Chloride 0.9% 1, 300 900 75 000 ml @ 75 mls/hr IV . [id number] JJ Rx#:[id number] Intake, IV Titration 46.422 92.667 Amount Alteplase 10 mg In Sodium 92.667 Chloride 0.9% 100 ml @ 1 MG/HR 10 mls/hr IA .Q10H JJ Rx#:[id number] Heparin Sod,Pork in 0.45% 46.422 0 NaCl 25,000 unit In 0.45 % NaCl 1 250ml.bag @ 18 UNITS/KG/HR 17.554 mls/hr IV .[id number] JJ Rx#: [id number] Oral 740 240 Output: Urine 1300 0 Other: Voiding Method Urinal Urinal ABP, PAP, CO, CI - Last Documented Arterial Blood Pressure 164/70 - Labs CBC & Chem 7: 03/25/21 11:24 03/25/21 11:24 Labs: Abnormal Lab Results - Last 24 Hours (Table) 03/23/21 03/23/21 03/23/21 Range/Units 07:54 14:40 17:51 WBC (3.8-10.6) k/uL APTT 101.2 H* >200.0 H* 34.4 H (22.0-30.0) sec 03/23/21 03/23/21 03/24/21 Range/Units 20:31 20:31 04:16 WBC 11.3 H (3.8-10.6) k/uL APTT 35.3 H 36.7 H (22.0-30.0) sec 03/24/21 Range/Units 04:16 WBC 11.5 H (3.8-10.6) k/uL APTT (22.0-30.0) sec
== END 2021-03-25 15:22 | disposition home or self-care (01) | DRG 272 ==
LOC: SUPCPDRO 08:39 → EC 08:39 → 3SCARD 12:30 → 2SICU 03-23 13:17 → 3SCARD 03-24 22:01
PROVIDERS: ADMIT Internal Medicine Interventional Cardiology; ATTEND Internal Medicine Interventional Cardiology
PROC: 04CN3ZZ Extirpation of Matter from Left Popliteal Artery, Percutaneous Approach (ICD-10-PCS; principal; 2021-03-23 09:45)
PROC: 3E05317 Introduction of Other Thrombolytic into Peripheral Artery, Percutaneous Approach (ICD-10-PCS; 2021-03-23 09:45)
PROC: B41G1ZZ Fluoroscopy of Left Lower Extremity Arteries using Low Osmolar Contrast (ICD-10-PCS; 2021-03-23 09:45)
PROC: B41F1ZZ Fluoroscopy of Right Lower Extremity Arteries using Low Osmolar Contrast (ICD-10-PCS; 2021-03-24)
PROC: 04PY33Z Removal of Infusion Device from Lower Artery, Percutaneous Approach (ICD-10-PCS; 2021-03-24)
PROC: B41G1ZZ Fluoroscopy of Left Lower Extremity Arteries using Low Osmolar Contrast (ICD-10-PCS; 2021-03-24)
DX: I74.3 Embolism and thrombosis of arteries of the lower extremities (principal); E78.2 Mixed hyperlipidemia; Z20.822 Contact with and (suspected) exposure to COVID-19; N40.0 Benign prostatic hyperplasia without lower urinary tract symptoms; M54.50 Low back pain, unspecified; I34.0 Nonrheumatic mitral (valve) insufficiency; F17.210 Nicotine dependence, cigarettes, uncomplicated; Z71.6 Tobacco abuse counseling; Z79.82 Long term (current) use of aspirin; Z79.02 Long term (current) use of antithrombotics/antiplatelets; Z79.899 Other long term (current) drug therapy; Z86.73 Personal history of transient ischemic attack (TIA), and cerebral infarction without residual deficits; Z86.69 Personal history of other diseases of the nervous system and sense organs; Z95.820 Peripheral vascular angioplasty status with implants and grafts; Z87.39 Personal history of other diseases of the musculoskeletal system and connective tissue; Z86.010 Personal history of colon polyps; Z98.890 Other specified postprocedural states; Z82.3 Family history of stroke; Z82.49 Family history of ischemic heart disease and other diseases of the circulatory system; Z80.1 Family history of malignant neoplasm of trachea, bronchus and lung; Z82.0 Family history of epilepsy and other diseases of the nervous system; Z81.1 Family history of alcohol abuse and dependence
CPT/HCPCS: 36200; 36415; 37211; 37214; 75710; 76937; 80048; 80053; 82565; 84520; 85025; 85384; 85610; 85730; 87635; 96365; 96366; 99285

== ENCOUNTER → 2021-10-02 | Outpatient (CLI) | payer BC ==
--- NOTE | 2021-10-02 22:09 | CTL ---
EXAMINATION TYPE: CT Low Dose Lung DATE OF EXAM ORDERED: 10/02/2021 HISTORY: Lung cancer screening CT DLP: 108.[address] CTDI: 2.60 mGy Automated exposure control for dose reduction was used. SCREENING VISIT: Follow-up screening visit. COMPARISON: 02/02/2021 right upper lobe apical solid nodule TECHNIQUE: Low dose computed tomography scan was performed through the chest at 1 mm thick sections a nd reconstructed images in multiple planes at 1 mm and [address] DIAGNOSTIC QUALITY: Satisfactory FINDINGS: LUNG NODULES: Left lingula suspected accessory fissure intrafissural lymph node versus streaky atelectasis, Series 8 image 3021 and, series 4 image 262. No significant change in upper lobe apical nodular densities li enriqueta representing atelectasis/scarring. LUNGS: COPD: Severity: Severe, centrilobular and paraseptal emphysema changes. Fibrosis: Severity: None Lymph nodes: Multiple prominent but nonenlarged mediastinal lymph nodes which are stable from prior. Other findings: None RIGHT PLEURAL SPACE: Effusion: None Calcification: None Thickening: None Pneumothorax: None LEFT PLEURAL SPACE: Effusion: None Calcification: None Thickening: None Pneumothorax: None HEART: Heart Size: Normal Coronary Calcification: Small Pericardial Effusion: None OTHER FINDINGS: Upper abdomen: None Bony thorax: None Supraclavicular region: None Other: None IMPRESSION: 1. No change in the previously identified right apical nodular density which may represent is atelec tasis and/or scarring. 2. No new or enlarging nodules identified. 3. Severe emphysema changes. CT LUNG RAD AND CT CHEST RECOMMENDATION: Lung-Rad 2 Benign Appearance or Behavior: Continue annual sc reening with LDCT in 12 months. S Modifier (other clinically significant findings): Severe emphysema
== END | disposition home or self-care (01) ==
LOC: RADCTMAIN 16:23
PROVIDERS: ATTEND Internal Medicine
DX: Z12.2 Encounter for screening for malignant neoplasm of respiratory organs (principal); Z87.891 Personal history of nicotine dependence
CPT/HCPCS: 71271

== ENCOUNTER → 2021-11-13 | Outpatient (CLI) | payer BC ==
--- NOTE | 2021-11-13 08:11 | US ---
EXAMINATION TYPE: US liver DATE OF EXAM: 11/13/2021 COMPARISON: NONE CLINICAL HISTORY: R74.8 ABNORMAL LEVELS OF OTHER SERUM. Elevated liver enzymes TECHNIQUE: Multiple sonographic images of the right upper quadrant are obtained. FINDINGS: EXAM MEASUREMENTS: Liver Length: 15.4 cm Gallbladder Wall: 0.2 cm CBD: 0.3 cm Right Kidney: 11.8 x 5.1 x 4.7 cm Pancreas: Obscured by bowel gas Liver: appears wnl Gallbladder: no evidence of stones Evidence for sonographic Cary's sign: no CBD: wnl Right Kidney: cystic area upper pole = 1.1 x 1.1 x 1.1cm IMPRESSION: 1. No evidence for acute process. Sonographic appearance of the liver. 2. Right renal cyst.
== END | disposition home or self-care (01) ==
LOC: RADUSWWP 07:28
PROVIDERS: ATTEND Internal Medicine
DX: R74.8 Abnormal levels of other serum enzymes (principal)
CPT/HCPCS: 76705

== ENCOUNTER → 2022-10-25 | Outpatient (CLI) | payer BC ==
--- NOTE | 2022-10-25 09:40 | CTL ---
EXAMINATION TYPE: CT Low Dose Lung DATE OF EXAM ORDERED: 10/25/2022 HISTORY: Smoker. Lung cancer screening CT DLP: 137.[address] CTDI: 3.5 mGy Automated exposure control for dose reduction was used. SCREENING VISIT: Subsequent COMPARISON: 10/02/2021 TECHNIQUE: Low dose computed tomography scan was performed through the chest at 1 mm thick sections a nd reconstructed images in the coronal plane at [address] DIAGNOSTIC QUALITY: Satisfactory FINDINGS: LUNG NODULES: None. 1. Minimal 0.3 cm density medially in the posterior right lung base. Series 4 image 291. 2. Stable appearing 0.8 cm density anterior left lower lung field. Series 4 image 232. LUNGS: COPD: Severity: Severe Fibrosis: Severity: None Lymph nodes: There is a 1.0 cm lymph node pretracheal space. Series 3 image 121 this is minimally mor e prominent than the comparison. Other findings: None RIGHT PLEURAL SPACE: Effusion: None Calcification: None Thickening: None Pneumothorax: None LEFT PLEURAL SPACE: Effusion: None Calcification: None Thickening: None Pneumothorax: None HEART: Heart Size: Normal Coronary calcification: None Pericardial effusion: None OTHER FINDINGS: Upper abdomen: Normal Bony thorax: Normal Supraclavicular region: Normal Other: Ascending thoracic aorta at the level the main pulmonary artery measures 3.5 cm. The main pul monary artery at the bifurcation measures 2.3 cm. IMPRESSION: 1. Benign appearing findings. 2. Severe emphysematous changes FOLLOW UP CT CHEST RECOMMENDATION: Follow-up low-dose CT chest [address] LUNG RAD: Lung-Rad 2 Benign Appearance or Behavior
== END | disposition home or self-care (01) ==
LOC: RADCTMAIN 08:05
PROVIDERS: ATTEND Internal Medicine
DX: Z12.2 Encounter for screening for malignant neoplasm of respiratory organs (principal); J43.9 Emphysema, unspecified; F17.210 Nicotine dependence, cigarettes, uncomplicated
CPT/HCPCS: 71271

== ENCOUNTER → 2024-05-12 | Outpatient (CLI) | payer BC ==
[2024-05-12 15:16] LABS: ALT 61 U/L (10-49); AST 44 U/L (14-35); Albumin 4.3 g/dL (3.8-4.9); Albumin/Globulin Ratio 1.72 Ratio (1.60-3.17); Alkaline Phosphatase 159 U/L (41-126); BUN/Creat Ratio 13.27 Ratio (12.00-20.00); Blood Urea Nitrogen 14.6 mg/dL (9.0-27.0); C Reactive Protein <0.30 mg/dL (0.00-0.80); Calcium 9.3 mg/dL (8.7-10.3); Carbon Dioxide 25.5 mmol/L (21.6-31.8); Chloride 106 mmol/L (96-109); Globulin 2.5 g/dL (1.6-3.3); Glucose 99 mg/dL (70-110); Sodium 142 mmol/L (135-145); Total Bilirubin 1.2 mg/dL (0.3-1.2); Total Protein 6.8 g/dL (6.2-8.2)
[2024-05-12 15:50] LABS: Basophils # (A) 0.08 X 10*3/uL (0.00-0.10); Basophils % (A) 0.5 %; Eosinophils # (A) 0.21 X 10*3/uL (0.04-0.35); Eosinophils % (A) 1.4 %; HCT 51.2 % (39.6-50.0); HGB 16.8 g/dL (13.0-17.0); Lymphocytes # (A) 2.92 X 10*3/uL (0.90-5.00); Lymphocytes % (A) 19.7 %; MCH 31.8 pg (27.0-32.0); MCHC 32.8 g/dL (32.0-37.0); MCV 96.8 FL (80.0-97.0); Mean Platelet Volume 10.6 FL (9.5-12.2); Monocytes # (A) 1.13 X 10*3/uL (0.20-1.00); Monocytes % (A) 7.6 %; NRBC Per 100 WBC 0 X 10*3/uL (0.00-0.01); Neutrophils # (A) 10.37 X 10*3/uL (1.80-7.70); Neutrophils % (A) 70.3 %; Platelet Count 219 X 10*3/uL (140-440); RBC 5.29 X 10*6/uL (4.40-5.60); RDW 13.8 % (11.5-14.5); WBC 14.79 X 10*3/uL (4.50-10.00)
[2024-05-12 16:03] LABS: Erythrocyte Sedimentation Rate 16 mm/Hr (0-20)
[2024-05-12 17:51] LABS: Gliadin AB IgA, Deaminated Negative (Negative); Gliadin AB IgA, Unit 3.8 U/mL; Gliadin AB IgG, Deaminated Negative (Negative); Gliadin AB IgG, Unit <0.4 U/mL
== END | disposition home or self-care (01) ==
LOC: LABWHC1 09:41
PROVIDERS: ATTEND Internal Medicine
DX: K52.9 Noninfective gastroenteritis and colitis, unspecified (principal)
CPT/HCPCS: 36415; 80053; 83516; 85025; 85652; 86140

== ENCOUNTER → 2024-08-31 | Outpatient (CLI) | payer BC ==
--- NOTE | 2024-08-31 09:13 | US ---
EXAMINATION TYPE: US abdomen limited DATE OF EXAM: 08/31/2024 COMPARISON: NONE CLINICAL INDICATION: Male, 64 years old with history of R74.8 ABNORMAL LEVELS OF OTHER SERUM ENZYMES; Diarrhea x 10 months; Patient denies any other signs, symptoms, or relevant history TECHNIQUE: Grayscale and color Doppler imaging of the right upper quadrant was performed. FINDINGS: EXAM MEASUREMENTS: Liver Length: 15.4 cm Gallbladder Wall: 0.3 cm CBD: 0.2 cm Right Kidney: 11.4 x 5.4 x 5.1 cm SEWING DEMONSTRATOR NOTES: Pancreas: Tail obscured by overlying bowel gas Liver: Increased attenuation Gallbladder: wnl Evidence for sonographic Cary's sign: No CBD: wnl Right Kidney: wnl; subcentimeter cyst redemonstrated IMPRESSION: Right renal cyst [facility], , 08/31/2024 9:11 AM
[2024-08-31 16:24] LABS: Basophils # (A) 0.09 X 10*3/uL (0.00-0.10); Basophils % (A) 0.7 %; Eosinophils # (A) 0.19 X 10*3/uL (0.04-0.35); Eosinophils % (A) 1.6 %; HGB 17.3 g/dL (13.0-17.0); Lymphocytes # (A) 3.06 X 10*3/uL (0.90-5.00); Lymphocytes % (A) 25.1 %; MCH 31.3 pg (27.0-32.0); MCHC 32.6 g/dL (32.0-37.0); Mean Platelet Volume 11.1 FL (9.5-12.2); Monocytes # (A) 1.03 X 10*3/uL (0.20-1.00); Monocytes % (A) 8.4 %; NRBC Per 100 WBC 0 X 10*3/uL (0.00-0.01); Neutrophils # (A) 7.76 X 10*3/uL (1.80-7.70); Neutrophils % (A) 63.5 %; Platelet Count 223 X 10*3/uL (140-440); RBC 5.52 X 10*6/uL (4.40-5.60); RDW 13.4 % (11.5-14.5); WBC 12.21 X 10*3/uL (4.50-10.00)
[2024-08-31 16:48] LABS: Hepatitis B Surface Antigen Nonreactive (Nonreactive); Hepatitis C IgG Antibody Nonreactive (Nonreactive)
[2024-08-31 16:55] LABS: ALT 78 U/L (10-49); AST 48 U/L (14-35); Albumin 4.3 g/dL (3.8-4.9); Albumin/Globulin Ratio 1.95 Ratio (1.60-3.17); Alkaline Phosphatase 153 U/L (41-126); BUN/Creat Ratio 12.33 Ratio (12.00-20.00); Blood Urea Nitrogen 14.8 mg/dL (9.0-27.0); Calcium 9.3 mg/dL (8.7-10.3); Carbon Dioxide 23.8 mmol/L (21.6-31.8); Chloride 109 mmol/L (96-109); Globulin 2.2 g/dL (1.6-3.3); Glucose 105 mg/dL (70-110); Potassium 4.9 mmol/L (3.5-5.5); Sodium 144 mmol/L (135-145); Total Bilirubin 1.1 mg/dL (0.3-1.2); Total Protein 6.5 g/dL (6.2-8.2)
== END | disposition home or self-care (01) ==
LOC: RADUSWWP 08:46
PROVIDERS: ATTEND Internal Medicine Gastroenterology
DX: N28.1 Cyst of kidney, acquired (principal); R74.8 Abnormal levels of other serum enzymes
CPT/HCPCS: 76705; 80053; 85025; 86803; 87340